=== PATIENT | female | born 1990 | race American Indian/Alaskan Native ===

== ENCOUNTER 2021-05-27 14:26 | Outpatient (CLI) | payer BC ==
--- NOTE | 2021-05-27 16:12 | Ultrasound Report ---
ULTRASOUND-GUIDED CORE NEEDLE BIOPSY Right BREAST WITH CLIP PLACEMENT INDICATION: Right breast mass at the 11:00 position. FINDINGS: Informed consent was obtained. The mass within the right breast at the 11:00 position, 1 cm from the nipple, was identified with ultrasound. The overlying skin was cleansed with chloro prep and local an esthesia was obtained with a 1% lidocaine solution. Under ultrasound guidance a 14-gauge spring loade d core biopsy needle was advanced to the lesion. A total of 4 core samples were obtained. A U-shaped biopsy marker was placed to randall the site of the biopsy. Specimen samples were placed in formalin and sent to pathology for analysis. Patient tolerated the procedure well and no immediate complications were identified. IMPRESSION: Technically successful ultrasound-guided core biopsy of right breast mass at the 11:00 position with placement of a U-shaped biopsy marker. An addendum will be added to this report once pathology results are available. Signer Name: Sundar Johnston MD Signed: 05/27/2021 4:07 PM Workstation Name: [id number]
--- NOTE | 2021-05-27 16:35 | Mammography Report ---
BILATERAL DIGITAL SCREENING MAMMOGRAM WITH CAD WITH TOMOSYNTHESIS HISTORY: Status post right breast mass at the 11:00 position. Due to scheduling error, the patient wa s scheduled for the biopsy on 05/27/2021 and then a diagnostic bilateral mammogram and ultrasound on . This was noted after the biopsy and we performed her mammogram images this same day. TECHNIQUE: Routine digital mammographic imaging performed. This examination was interpreted with th e benefit of Computer-aided Detection analysis. Tomosynthesis images were acquired and reviewed. COMPARISON: Ultrasound performed earlier the same day and outside ultrasound 05/15/2021. FINDINGS: Breast Density: heterogeneously dense breast parenchymal pattern which somewhat lessens the sensitivi ty of the evaluation. Digital CC and MLO views demonstrate a biopsy marker in the right breast at 11:00 position with assoc iated circumscribed mass. Additionally, there is a separate mass in the right breast at the 7:00 to 8 :00 position, 5 cm from the nipple. A larger partially visualized circumscribed mass in the right chuckie ast at the 7:00 to 8:00 position, 9 cm from nipple is also noted. No suspicious findings within the l eft breast. IMPRESSION: 1. Status post right breast biopsy at the 11:00 position with accurate location of a U-shaped biopsy marker. 2. There is a separate mass in the right breast at the 7:00 to 8:00 position, 5 cm from the nipple. A targeted ultrasound is recommended for further evaluation. 3. An additional mass in the right breast at the 7:00 to 8:00 position, 9 cm from the nipple, is als o noted. A targeted ultrasound is recommended for further evaluation. The patient is scheduled to return for ultrasound 05/29/2021. BIRADS 0-Incomplete: Needs additional imaging evaluation NOTE: WE WILL RECALL THE PATIENT FOR THIS ADDITIONAL EVALUATION. Signer Name: Sundar Johnston MD Signed: 05/27/2021 4:30 PM Workstation Name: [id number]
== END 2021-05-27 14:27 | disposition home or self-care (01) ==
LOC: SPVWC 14:26
PROVIDERS: ATTEND Surgery
DX: N63.11 Unspecified lump in the right breast, upper outer quadrant (principal); D24.1 Benign neoplasm of right breast; R92.8 Other abnormal and inconclusive findings on diagnostic imaging of breast; Z79.899 Other long term (current) drug therapy
CPT/HCPCS: 19083; 77066; 88305; G0279

== ENCOUNTER 2021-05-29 14:28 | Outpatient (CLI) | payer BC ==
--- NOTE | 2021-05-30 15:06 | Ultrasound Report ---
ULTRASOUND BREAST RIGHT LIMITED, 05/29/2021 CLINICAL INFORMATION / INDICATION: BREAST MASS N63.11. TECHNIQUE: COMPARISON: Mammogram 05/27/2021 FINDINGS: In the right breast at 7:00, 10 cm from nipple, there is an oval lobulated solid mass measuring 4.6 x 2.4 x 2.0 cm. This corresponds to the large mass partially visualized mammographically. Additionally, there is a solid oval mass at 7:00, 8 cm from nipple measuring 1.1 x 1.1 x 0.6 cm. This mass is parallel to the skin and corresponds to mass noted on recent mammogram. Additionally, at 6:00, there is an oval solid lobulated mass measuring 2.1 x 1.3 x 0.9 cm, 5 cm from nipple. IMPRESSION: Multiple solid oval masses are seen in the right breast at 6 and 7:00, as outlined above. 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 Recommend following up with pathology for right breast bio psy performed on 05/27/2021. If that biopsy result is fibroadenoma, I would recommend 6 month follow-u p right breast ultrasound for the additional solid masses in the right breast to establish stability. Follow up recommendation: Short term follow up in 6 months. Assuming pathology of the right breast ma ss biopsied on 05/27/2021 is benign. BI-RADS Category 3: Probably Benign. Followup in 6 months. A normal or "negative" report should not preclude biopsy or follow-up of a clinically suspicious find ing. Signer Name: Elsie Macedo MD Signed: 05/30/2021 3:02 PM Workstation Name: [id number]
== END 2021-05-29 14:29 | disposition home or self-care (01) ==
LOC: SPVWC 14:28
PROVIDERS: ATTEND Surgery
DX: N63.13 Unspecified lump in the right breast, lower outer quadrant (principal); N63.11 Unspecified lump in the right breast, upper outer quadrant

== ENCOUNTER 2021-06-24 14:53 | Outpatient (CLI) | payer BC ==
--- NOTE | 2021-06-24 16:22 | Magnetic Resonance Report ---
Bilateral breast MR without and with contrast. History: Family history of breast cancer, right breast palpable finding. Comparison: 05/27/2021, 05/29/2021. Technique: Multiplanar multisequence MR images of the breast were obtained before and after the intra venous administration of 16 ml of Clariscan contrast agent. Post processing analysis and review was p erformed on a separate computer workstation. Findings: The breasts are composed of heterogeneously dense fibroglandular tissue. There is moderate background parenchymal enhancement within both breasts which decreases the sensitivity of MRI.. RIGHT BREAST: There are four circumscribed oval homogeneously enhancing masses within the right breas t. These demonstrate T2 hyperintense signal and the appearance is most suggestive of fibroadenomas. T he largest of these measures up to 4.5 x 2.4 x 2.1 cm in the right breast at the 7:00 posterior posit ion. Additionally, there is a 1.3 x 0.9 x 1 cm mass in the right breast at the 7:00 position at middl e depth and a 2.1 x 1.4 x 1 cm mass at the 6:00 position at middle depth.. Finally there is a 1.2 x 0 .9 x 1 cm similar appearing mass in the right breast at the 11:00 anterior position. The 11:00 mass w as biopsied previously and was found to represent a benign fibroadenoma. A few small cysts are noted scattered throughout the right breast. LEFT BREAST: A 1.7 x 0.9 x 1 cm mass within the left breast at the 12:00 position at middle depth is noted. This shows similar characteristics to the right breast masses and is suspected represent a fib roadenoma There are a few scattered cysts throughout the left breast. No abnormal axillary or internal mammary lymph nodes. Impression: There are four distinct right breast masses (6:00, 7:00, 8:00, and 11:00 positions). The 11:00 mass w as previously biopsied and was found to represent a benign fibroadenoma. The additional three masses which have not been biopsied are also suspected to represent fibroadenomas. A six-month follow up ult rasound of these is recommended. An oval mass within the left breast at the 12:00 position at middle depth is also noted. This is also favored to represent a fibroadenoma. A six-month follow-up ultrasound of this is recommended as well . BIRADS 3: Probably benign. A normal MRI does not exclude the presence of some forms of breast malignancy as literature reports s uggest that some forms of ductal carcinoma in situ or lobular carcinoma, particularly, may not be det ected on MRI. The sensitivity and specificity of MRI for cancers under 5 mm may be reduced. MRI does not replace the recommendation for annual conventional mammographic evaluation and should be used as an adjunct to mammography and physical examination as necessary. Signer Name: Sundar Johnston MD Signed: 06/24/2021 4:17 PM Workstation Name: [id number]
== END 2021-06-24 14:54 | disposition home or self-care (01) ==
LOC: SPVIMAG 14:53
PROVIDERS: ATTEND Surgery
DX: N60.21 Fibroadenosis of right breast (principal); Z80.3 Family history of malignant neoplasm of breast
CPT/HCPCS: A9575; C8908; 77049